=== PATIENT | female | born 2005 | race Hispanic/Latino ===

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

== ENCOUNTER 2025-02-07 12:41 | Emergency (ER) | payer SELFPAY ==
[~2025-02-07] VITALS: Ht 144.8 cm; Wt 108.9 kg
[~2025-02-07 12:41] MED LIST changes: -ALBU8.5H8 IH; -BENZ-17 PO; -DIPH1POW20 PO; +PREN1TAB80 PO
[2025-02-07 13:27] LABS: BASOPHILS # (AUTO) 0.03 K/uL (0.00-0.20); BASOPHILS % (AUTO) 0.4 % (0.0-5.0); EOSINOPHILS # (AUTO) 0.06 K/uL (0.00-0.70); EOSINOPHILS % (AUTO) 0.8 % (0.0-8.0); HEMATOCRIT 36.8 % (36-48); IMMATURE GRANULOCYTE ABSOLUTE 0.02 K/uL (0-1); LYMPHOCYTES # (AUTO) 1.5 K/uL (1.0-4.8); LYMPHOCYTES % (AUTO) 19.1 % (21.0-51.0); MEAN CORPUSCULAR HEMOGLOBIN 26.4 pg (27.0-33.0); MEAN CORPUSCULAR HGB CONC 32.3 g/dL (32.0-36.0); MEAN CORPUSCULAR VOLUME 81.6 fL (80-100); MONOCYTES # (AUTO) 0.4 K/uL (0.1-1.0); MONOCYTES % (AUTO) 4.8 % (3.0-13.0); NEUTROPHILS # (AUTO) 5.9 K/uL (1.8-7.7); NEUTROPHILS % (AUTO) 74.6 % (40.0-77.0); PLATELET COUNT (AUTO) 291 K/uL (130-400); RED BLOOD CELL COUNT(AUTO) 4.51 MIL/uL (4.00-5.50); RED CELL DISTRIBUTION WIDTH 16.1 % (11.0-15.5); WHITE BLOOD COUNT (AUTO) 7.9 K/uL (4.8-10.8)
[2025-02-07 13:38] LABS: CREATININE 0.6 mg/dL (0.5-1.0); POTASSIUM 3.6 mmol/L (3.5-5.1)
--- NOTE | 2025-02-07 13:51 | HMCIMG ---
TRANSABDOMINAL AND TRANSVAGINAL PELVIC ULTRASOUND; DATED 02/07/2025 1:47 PM CDT. CLINICAL INDICATION : Abdominal pain FINDINGS: Single live intrauterine gestation in the fundal endometrium. No perigestational sac hematoma identified. CRL measures 1.07 cm , corresponds to 7 weeks 1 day. cardiac activity and heart rate is 149 beats per minute. The uterus is anteverted with normal shape. The myometrium is homogeneous and there is no evidence of focal or diffuse lesions. Both ovaries appear normal with normal flow on color and Spectral Doppler. No adnexal masses. No free fluid or collections. Urinary bladder appears normal. IMPRESSION: 1. Single live intrauterine gestation 7 weeks 1 day.
--- NOTE | 2025-02-07 13:52 | HMCIMG ---
Exam Type: US ABDOMINAL RUQ\E\LTD Clinical Information: Abdominal pain Comparison: None Findings: The liver shows fatty infiltration and is enlarged, measuring 19 cm and is otherwise unremarkable. Doppler evaluation shows patent portal and hepatic veins. The gallbladder shows no significant abnormalities. Specifically, no calculi are seen. No bile duct dilatation is noted. The gallbladder wall measures 2 mm. The common bile duct measures 4 mm. The right kidney measures 10.2 x 6.1 cm- it shows no hydronephrosis or calculi, masses or other abnormalities. The pancreas is unremarkable. The aorta and inferior vena cava show no significant abnormalities. IMPRESSION: FATTY LIVER INFILTRATION AND HEPATOMEGALY. OTHERWISE NORMAL RIGHT UPPER QUADRANT ABDOMINAL ULTRASOUND.
[2025-02-07 14:03] LABS: ALBUMIN 3.1 g/dL (3.5-5.0); BILIRUBIN,DIRECT 0.1 mg/dL (0.0-0.3); BILIRUBIN,TOTAL 0.5 mg/dL (0.2-1.0); TOTAL PROTEIN, SERUM 7.6 g/dL (6.0-8.3)
[2025-02-07] MEDS: acetaMINOPHEN 500 MG TABLET PO ONE (14:47)
[2025-02-07 14:52] LABS: APPEARANCE,URINE CLEAR (CLEAR); BILIRUBIN,URINE NEGATIVE (NEGATIVE); COLOR,URINE YELLOW (YELLOW); GLUCOSE, URINE (UA) NEGATIVE (NEGATIVE); KETONES,URINE 5 mg/dL (NEGATIVE); LEUKOCYTE ESTERASE ,URINE 75 Leu/uL (NEGATIVE); NITRATE,URINE NEGATIVE (NEGATIVE); OCCULT BLOOD,URINE NEGATIVE (NEGATIVE); PROTEIN,URINE 10 mg/dL (NEGATIVE); UROBILINOGEN,URINE 0.2 mg/dL (0.2-1.0)
[2025-02-07 14:57] LABS: BACTERIA,URINE RARE /HPF (None Seen); MUCUS,URINE RARE LPF (None Seen); SQUAMOUS EPITHELIAL CELL,UR MOD /HPF (0-2); YEAST,URINE BUDDING RARE /HPF (None Seen)
--- NOTE | 2025-02-07 15:06 | ERN ---
General Chief Complaint: Abdominal Pain in Stated Complaint: ABD PAIN IN Time Seen by MD: 12:50 Time Seen by Midlevel: 12:50 Source: patient History of Present Illness Initial Comments 19 y/o female presents to the ED due to abdominal pain onset 1 week. Pt reports she is 7 weeks , . Reports nausea but denies fevers, dysuria, vaginal bleeding or further associated symptoms. Denies significant PMHx Allergies: Coded Allergies: No Known Drug Allergies (Unverified Allergy, Unknown, 04/30/19) Home Meds Reported Medications Vits W-Ca,Fe,FA(<1Mg) ( Vitamins) 27 Mg Iron-800 Mcg Tablet, 1 EACH PO DAILY, TAB 08/21/24 Past Medical History Past Medical History: No Pertinent History Past Surgical History: None Family History Family History: Negative Social History Social History: Negative Female( History) LMP: Dec 14, 2024 : 2 Para: 1 ROS Dictation Constitutional: Negative for fever,chills, and weight loss Eyes: Negative for injury, pain,redness, and discharge ENT: Negative for injury,pain or swelling Cardiovascular: Negative for chest pain, palpitations, and edema Respiratory: Negative for shortness of breath, cough, and wheezing, Abdomen/GI: Positive for generalized abdominal pain. Negative for abdominal pain, nausea, vomiting, diarrhea, and constipation Back: Negative for injury and pain : Negative for painful urination, bleeding or discharge MS/Extremity: Negative for injury and deformity Skin: Negative for rash, and discoloration Neuro: Negative for headache, weakness, numbness, tingling, and seizure Psych: Negative for suicide ideation, homicidal ideation, and hallucinations Physical Exam Physical Exam Dictation General: awake, alert, no acute distress Head/Face: Normocephalic, atraumatic Eyes: PERRL, EOMI, normal conjunctiva ENT: oral cavity clear, oral mucosa moist Neck: Supple, normal range of motion Cardiovascular: RRR, normal S1/S2 Respiratory: CTAB, no respiratory distress, no rales or wheezes Abdomen: Soft, non-tender, non-distended, no guarding or rebound. Skin: Warm, dry, normal turgor, no rash MS/Extremity: Pulses equal, no cyanosis, neurovascular intact, FROM Neuro: COAx4, GCS 15, strength 5/5, CN 2-12 intact, normal cerebellar exam, normal gait Psych: Normal behavior, mood, and affect normal Results Laboratory and Microbiology Lab and Micro Result Laboratory Tests Test 02/07/25 13:06 02/07/25 14:40 White Blood Count 7.9 K/uL (4.8-10.8) Red Blood Count 4.51 MIL/uL (4.00-5.50) Hemoglobin 11.9 g/dL (12.0-16.0) L Hematocrit 36.8 % (36-48) Mean Corpuscular Volume 81.6 fL (80-100) Mean Corpuscular Hemoglobin 26.4 pg (27.0-33.0) L Mean Corpuscular Hemoglobin Concent 32.3 g/dL (32.0-36.0) Red Cell Distribution Width 16.1 % (11.0-15.5) H Platelet Count 291 K/uL (130-400) Mean Platelet Volume 9.9 fL (7.5-10.5) Immature Granulocyte % (Auto) 0.3 % (0-1) Neutrophils (%) (Auto) 74.6 % (40.0-77.0) Lymphocytes (%) (Auto) 19.1 % (21.0-51.0) L Monocytes (%) (Auto) 4.8 % (3.0-13.0) Eosinophils (%) (Auto) 0.8 % (0.0-8.0) Basophils (%) (Auto) 0.4 % (0.0-5.0) Neutrophils # (Auto) 5.9 K/uL (1.8-7.7) Lymphocytes # (Auto) 1.5 K/uL (1.0-4.8) Monocytes # (Auto) 0.4 K/uL (0.1-1.0) Eosinophils # (Auto) 0.06 K/uL (0.00-0.70) Basophils # (Auto) 0.03 K/uL (0.00-0.20) Absolute Immature Granulocyte (auto 0.02 K/uL (0-1) Nucleated Red Blood Cells 0.0 % (0.0-0.19) Sodium Level 134 mmol/L (136-145) L Potassium Level 3.6 mmol/L (3.5-5.1) Chloride Level 100 mmol/L (101-111) L Carbon Dioxide Level 26 mmol/L (21-32) Blood Urea Nitrogen 10 mg/dL (7-18) Creatinine 0.6 mg/dL (0.5-1.0) Glomerular Filtration Rate Calc 133 mL/min (>90) Random Glucose 95 mg/dL (70-105) Total Calcium 8.7 mg/dL (8.5-10.1) Total Bilirubin 0.5 mg/dL (0.2-1.0) Direct Bilirubin 0.1 mg/dL (0.0-0.3) Aspartate Amino Transf (AST/SGOT) 15 U/L (10-37) Alanine Aminotransferase (ALT/SGPT) 21 U/L (12-78) Alkaline Phosphatase 84 U/L (50-136) Total Protein 7.6 g/dL (6.0-8.3) Albumin 3.1 g/dL (3.5-5.0) L Lipase 22 U/L (16-77) Human Chorionic Gonadotropin, Quant 88729 mIU/mL (0-5) H Urine Color YELLOW (YELLOW) Urine Appearance CLEAR (CLEAR) Urine pH 7.0 (5.0-8.0) Urine Specific Mica 1.028 (1.001-1.031) Urine Protein 10 mg/dL (NEGATIVE) H Urine Glucose (UA) NEGATIVE mg/dL (NEGATIVE) Urine Ketones 5 mg/dL (NEGATIVE) H Urine Occult Blood NEGATIVE (NEGATIVE) Urine Nitrate NEGATIVE (NEGATIVE) Urine Bilirubin NEGATIVE mg/dL (NEGATIVE) Urine Urobilinogen 0.2 mg/dL (0.2-1.0) Urine Leukocyte Esterase 75 Adwoa/uL (NEGATIVE) H Urine RBC 2-5 /HPF (0-1) H Urine WBC 2-5 /HPF (0-1) H Urine Squamous Epithelial Cells MOD /HPF (0-2) Urine Bacteria RARE /HPF (None Seen) Urine Yeast RARE /HPF (None Seen) Labs Reviewed?: Yes EKG/XRAY/US/CT/MRI Ultrasound Comment REASON: Abdominal pain ORDERING PHYSICIAN: MERLIN HONG PROCEDURE: OB <14 - US OB <14 WEEKS TRANSABDOMINAL AND TRANSVAGINAL PELVIC ULTRASOUND; DATED 02/07/2025 1:47 PM CDT. CLINICAL INDICATION : Abdominal pain FINDINGS: Single live intrauterine gestation in the fundal endometrium. No perigestational sac hematoma identified. CRL measures 1.07 cm , corresponds to 7 weeks 1 day. cardiac activity and heart rate is 149 beats per minute. The uterus is anteverted with normal shape. The myometrium is homogeneous and there is no evidence of focal or diffuse lesions. Both ovaries appear normal with normal flow on color and Spectral Doppler. No adnexal masses. No free fluid or collections. Urinary bladder appears normal. IMPRESSION: 1. Single live intrauterine gestation 7 weeks 1 day. DICTATED BY: MICHEAL OCHOA MD DATE: 02/07/251345 REASON: Abdominal pain ORDERING PHYSICIAN: MERLIN HONG PROCEDURE: [id number] - US ABDOMINAL RUQ\LTD Exam Type: US ABDOMINAL RUQ\E\LTD Clinical Information: Abdominal pain Comparison: None Findings: The liver shows fatty infiltration and is enlarged, measuring 19 cm and is otherwise unremarkable. Doppler evaluation shows patent portal and hepatic veins. The gallbladder shows no significant abnormalities. Specifically, no calculi are seen. No bile duct dilatation is noted. The gallbladder wall measures 2 mm. The common bile duct measures 4 mm. The right kidney measures 10.2 x 6.1 cm- it shows no hydronephrosis or calculi, masses or other abnormalities. The pancreas is unremarkable. The aorta and inferior vena cava show no significant abnormalities. IMPRESSION: FATTY LIVER INFILTRATION AND HEPATOMEGALY. OTHERWISE NORMAL RIGHT UPPER QUADRANT ABDOMINAL ULTRASOUND. DICTATED BY: MICHEAL OCHOA MD DATE: 02/07/25 134 MDM MDM: Differential diagnosis: gastritis, acid reflux, abdominal pain in , UTI Rationale: 19 y/o female presents to the ED due to abdominal pain onset 1 week. Pt reports she is 7 weeks , . Reports nausea but denies fevers, dysuria, vaginal bleeding or further associated symptoms. Denies significant PMHx Per physical examination patient is in no acute distress, abdomen soft nontender. Acetaminophen administered in the ED. Labs obtained show mild anemia with Hgb of 11.9, HCG [id number] other [place] nonspecific. UA shows 75 leukocyte, and 2-5 wbc, no bacteria, no nitrates, no urinary symptoms. US OB single intrauterine measuring 7 weeks gestation, HR 149 bpm. RUQ US shows fatty liver and hepatomegaly without further acute findings. On reexamination pt verbalized pain resolved. Advised to follow up with PCP. Return to the ED if any worsening symptoms. Pt verbalized understanding, stable for discharge. There are no social concerns with this patient. I independently interpreted the test that were performed, results were reviewed by me and considered findings on radiology if ordered. Medical management and examination interpretation discussions were had by me with other qualified healthcare professionals as indicated for the patient's care. ED Course Orders Procedure Category Date Status Time Cbc With Differential LAB 02/07/25 Complete 12:50 Basic Metabolic Panel LAB 02/07/25 Complete 12:50 Urinalysis LAB 02/07/25 Complete W/Microscopic 12:50 Hcg,Quantitative LAB 02/07/25 Complete 12:50 Us Ob <14 Weeks US 02/07/25 Resulted 12:50 Us Abdominal Ruq\Ltd US 02/07/25 Resulted 12:50 Hepatic Function Panel LAB 02/07/25 Complete 12:50 Lipase LAB 02/07/25 Complete 12:50 Acetaminophen 500mg PHA 02/07/25 Complete Tab (Tylenol 500mg T 13:00 Culture Urine CARLOS 02/07/25 In Process 14:55 Current Medications Medications (Trade) Dose Ordered Sig/Surjit Route PRN Reason Start Time Stop Time Status Last Admin Dose Admin Acetaminophen (TYLenol 500MG TAB) 1,000 mg ONCE ONCE PO 02/07/25 13:00 02/07/25 13:01 DC 02/07/25 14:47 Vital Signs Date Time Temp Pulse Resp B/P (MAP) Pulse Ox O2 Delivery O2 Flow Rate FiO2 02/07/25 15:43 97.9 84 18 110/68 99 Room Air* 0 21 02/07/25 12:43 99.0 84 16 135/81 99 Room Air 0 DX & DISP Disposition: Discharge Departure Impression: Primary Impression: Abdominal pain during Additional Impression: Fatty liver Condition: Stable Additional Instructions: Discharge home. Rest. Follow up with primary care in 24 hours. Return to the ER for any acute changes or worsening symptoms. If any medications were prescribed take as directed. Okay to continue home medications unless otherwise discussed during your visit in the emergency room today. Patient was also advised to follow-up with primary care physician in 1 to 2 days for continued monitoring. Referrals: YINA HARPER MD (PCP) I performed the substantive portion of the visit. I have reviewed and personally made and approve the management plan that is documented in the notes by myself or the SHANELL. I acknowledge full responsibility for the patient's management plan. MERLIN HONG Feb 07, 2025 15:06
[2025-02-07 15:43] VITALS: BP 110/68; PULSE 84; RESP 18; TEMP 97.8; O2SAT 99
== END 2025-02-07 15:49 | disposition home or self-care (01) ==
LOC: EDH 12:41
DX: O26.611 Liver and biliary tract disorders in pregnancy, first trimester (principal); K76.0 Fatty (change of) liver, not elsewhere classified; O26.891 Other specified pregnancy related conditions, first trimester; R10.84 Generalized abdominal pain; R10.2 Pelvic and perineal pain; Z3A.01 Less than 8 weeks gestation of pregnancy; Z79.899 Other long term (current) drug therapy
CPT/HCPCS: 36415; 76705; 76801; 80048; 80076; 81001; 83690; 84702; 85025; 87086; 99284

== ENCOUNTER 2025-09-14 14:47 | Emergency (ER) | payer SELFPAY ==
[~2025-09-14] VITALS: Ht 144.8 cm; Wt 113.4 kg
[2025-09-14 14:48] VITALS: BP 138/86; PULSE 95; RESP 16; TEMP 98.2
--- NOTE | 2025-09-14 14:58 | NUR ---
OB TRANSFER INITIATED
--- NOTE | 2025-09-14 15:03 | NUR ---
[place] [facility] [place]
--- NOTE | 2025-09-14 15:13 | NUR ---
AT BEDSIDE WITH DOCTOR ANDRE MD PERFORMED A PELVIC EXAM AT THIS TIME CERVICAL CLOSED
[2025-09-14 15:14] LABS: NUCLEATED RED BLOOD CELLS 0.0 % (0.0-0.19); PLATELET COUNT (AUTO) 247.0 K/uL (130-400); RED BLOOD CELL COUNT(AUTO) 4.42 MIL/uL (4.00-5.50); RED CELL DISTRIBUTION WIDTH 15.1 % (11.0-15.5); WHITE BLOOD COUNT (AUTO) 10.0 K/uL (4.8-10.8)
--- NOTE | 2025-09-14 15:14 | ERN ---
ED Note History of Present Illness Stated Complaint: 39 WEEKS . SUSPECTS WATER BREAK 0700 TODAY Chief Complaint: OB>20 weeks gest. Time Seen by MD: 14:53 Dictation: 20-year-old female presenting to the emergency department , patient reports she is 39 weeks by dates has not established OB care, but has been to the ER multiple times during her to get checkups she reports. No com plications with the 1st vaginal delivery. Patient reported that she has watery discharge that started this morning and mild pelvic discomfort but no active contractions or cramps Allergies: Coded Allergies: No Known Drug Allergies (Unverified Allergy, Unknown, 04/30/19) Home Meds Reported Medications Vits W-Ca,Fe,FA(<1Mg) ( Vitamins) 27 Mg Iron-800 Mcg Tablet, 1 EACH PO DAILY, TAB 08/21/24 Past Medical History Past Medical History: No Pertinent History Surgical History: None Family History: Negative Social History: Negative : 2 Para: 1 Aborts: 0 Review of System Dictation Constitutional: Negative for fever,chills, and weight loss Eyes: Negative for injury, pain,redness, and discharge ENT: Negative for injury,pain or swelling Cardiovascular: Negative for chest pain, palpitations, and edema Respiratory: Negative for shortness of breath, cough, and wheezing, Abdomen/GI: Per HPI Back: Negative for injury and pain : Per HPI MS/Extremity: Negative for injury and deformity Skin: Negative for rash, and discoloration Neuro: Negative for headache, weakness, numbness, tingling, and seizure Psych: Negative for suicide ideation, homicidal ideation, and hallucinations Initial Vital Sign VS Vital Signs Date Time Temp Pulse Resp B/P (MAP) Pulse Ox O2 Delivery O2 Flow Rate FiO2 09/14/25 14:48 98.2 95 16 138/86 95 Room Air 0 Physical Exam Dictation General: awake, alert, NAD Head/Face: Normocephalic, atraumatic Eyes: PERRL, EOMI, vision at baseline ENT: oral cavity clear, TMs clear, no signs of infection Neck: Trachea midline, supple, no nuchal rigidity Cardiovascular: RRR, normal S1/S2, No MRGs, no JVD Respiratory: CTAB, no respiratory distress, No rales or wheezes Abdomen: Soft, gravid above the umbilicus exam, female nurse (Nasrin) invoicing specialist at bedside, cervical os closed Skin: Warm, dry, normal turgor, no rash MS/Extremity: Pulses equal, no cyanosis, neurovascular intact, FROM Neuro: COAx4, GCS 15, strength 5/5, CN 2-12 intact, normal cerebellar exam, normal gait, Psych: Normal behavior, mood, and affect normal Results (Laboratory/Radiology) Labs Reviewed?: Yes ED Course ED Course Orders Procedure Category Date Status Time Cbc Without LAB 09/14/25 Logged Differential 14:57 Basic Metabolic Panel LAB 09/14/25 Logged 14:57 Hepatic Function Panel LAB 09/14/25 Logged 14:57 Type And Screen BBK 09/14/25 Logged 14:57 Vital Signs Date Time Temp Pulse Resp B/P (MAP) Pulse Ox O2 Delivery O2 Flow Rate FiO2 09/14/25 14:48 98.2 95 16 138/86 95 Room Air 0 Medical Decision Making MDM MDM: Differential diagnosis: Rationale: Tests considered and ordered secondary to shared decision making include: labs, ECG and radiology Previous outside records reviewed: Old ER visits. Risk of complication and/or morbidity or mortality of patient management: None Medications-Per medication reconciliation Need for hospitalization: Patient does meet criteria for hospitalization. Need for emergency major/minor surgery: No There are no social concerns with this patient. Prescription drug management Prescriptions will include symptomatic care Patient's prior external medical records from other ER visits were reviewed by me as indicated. Prior testing and results from previous visits were reviewed. Prior tests were taken into account with medical decision making and resource utilization, independent historian/historians were used to obtain complete medical history. I independently interpreted the test that were performed, results were reviewed by me and considered findings on radiology if ordered. Medical management and examination interpretation discussions were had by me with other qualified healthcare professionals as indicated for the patient's care. 20-year-old female presenting after her water broke 39 weeks at term, we will transfer to [facility] and Ivon under Dr. Klein with stat EMS transfer, patient is currently not in active labor and cervical os is closed. Patient is stable for emergent transfer for OB services DX & DISP Disposition: Transfer Departure Impression: Primary Impression: Third trimester Additional Impression: Rupture of membranes with clear amniotic fluid Condition: Stable Referrals: YINA HARPER MD (PCP) JULY POWELL MD Sep 14, 2025 15:14
--- NOTE | 2025-09-14 15:19 | NUR ---
heart tones 152
--- NOTE | 2025-09-14 15:21 | NUR ---
PATIENT REPORT GIVEN TO L&D NURSE CYNDEE LOMAS [place] [facility] [place]
--- NOTE | 2025-09-14 15:24 | NUR ---
[facility] NOTIFIED OF EMERGENCY TRANSFER
[2025-09-14 15:27] LABS: CREATININE 0.5 mg/dL (0.5-1.0); GLOMERULAR FILTR. RATE CALC 138.0 mL/min (>90); GLUCOSE,RANDOM 109.0 mg/dL (70-105); SODIUM SERUM 137.0 mmol/L (136-145); UREA NITROGEN, BLOOD 18.0 mg/dL (7-18)
[2025-09-14 15:33] LABS: ASPARTATE AMINOTRANSFERASE 12.0 U/L (10-37); TOTAL PROTEIN, SERUM 6.9 g/dL (6.0-8.3)
--- NOTE | 2025-09-14 15:40 | NUR ---
[facility] ARRIVAL 1535. PATIENT TRANSFER TIME: 1540. ALL APPROPRIATE DOCUMENTS PROVIDED TO [facility].
== END 2025-09-14 15:22 | disposition short-term general hospital (02) ==
LOC: EDH 14:47
DX: O42.92 Full-term premature rupture of membranes, unspecified as to length of time between rupture and onset of labor (principal); Z3A.39 39 weeks gestation of pregnancy
CPT/HCPCS: 36415; 80048; 80076; 85027; 86850; 86900; 86901; 99285